=== PATIENT | female | born 1995 | race Caucasian/White ===

== ENCOUNTER 2016-04-10 14:08 | Emergency (ER) | payer BC ==
[2016-04-10 15:19] VITALS: BP 103/64
--- NOTE | 2016-04-10 16:08 | UC ---
Head Injury HPI - HPI Summary HPI Summary: 1 day history of cough, chills, nasal congestion, headache, myalgias, fatigue. Mild shortness of breath. Headache persists. Student at [employer]. Did have a flu shot - History Of Current Complaint Chief Complaint: UCRespiratory Stated Complaint: FLU LIKE SXS Time Seen by Provider: 04/10/16 16:00 Hx Obtained From: Patient Hx Last Menstrual Period: 03/22/16 ?: No Onset/Duration: Sudden Onset, Lasting Days - 1 Severity Currently: Moderate Severity Initially: Moderate Aggravating Factor(s): Nothing Alleviating Factor(s): Other - dayquil helped with fever. - Allergies/Home Medications Allergies/Adverse Reactions: Allergies Allergy/AdvReac Type Severity Reaction Status Date / Time Amoxicillin Allergy Hives Verified 04/10/16 15:15 Home Medications: Home Medications [id number] [Daytime/Nite Time Cold/Fl] 1 sheila PO BID PRN [History Confirmed 04/10/16] PMH/Surg Hx/FS Hx/Imm Hx Previously Healthy: Yes - Surgical History Surgical History: Yes Surgery Procedure, Year, and Place: L elbow - Family History Known Family History: Positive: Other - parents alive and well; does not know extended FH - Social History Occupation: Student Alcohol Use: Occasionally Substance Use Type: None Smoking Status (MU): Never Smoked Tobacco - Immunization History Most Recent Influenza Vaccination: 2016 Review of Systems Constitutional: Fever, Fatigue Skin: Negative Eyes: Negative ENT: Negative Respiratory: Other Cardiovascular: Negative Gastrointestinal: Negative Genitourinary: Negative Motor: Negative Neurovascular: Negative Musculoskeletal: Myalgia Neurological: Negative Psychological: Negative All Other Systems Reviewed And Are Negative: Yes Physical Exam Triage Information Reviewed: Yes Appearance: Ill-Appearing - looks mildly unwell Vital Signs: Initial Vital Signs Temp 99.5 F 04/10/16 15:15 Pulse 107 04/10/16 15:15 Resp 16 04/10/16 15:15 BP 103/64 04/10/16 15:15 Pulse Ox 99 04/10/16 15:15 Vital Signs Reviewed: Yes Eyes: Positive: Conjunctiva Inflamed ENT: Positive: Pharynx normal, TMs normal Dental Exam: Normal Neck: Positive: Supple, Nontender, Enlarged Nodes @ - mild increase in tonsillar nodes Respiratory: Positive: Lungs clear, Normal breath sounds Cardiovascular: Positive: RRR, No Murmur Abdomen Description: Positive: Nontender, No Organomegaly, Soft Musculoskeletal Exam: Normal Neurological Exam: Normal Psychological Exam: Normal Skin Exam: Normal Head Injury Course/Dx - Course Course Of Treatment: symptomatic treatment of flu - Differential Dx/Diagnosis Provider Diagnoses: influenza Discharge - Discharge Plan Condition: Stable Disposition: HOME Patient Education Materials: Influenza (ED) Additional Instructions: As discussed, please increase your intake. You need some nutrition, and I suggest soup broth, yogurt, easily digested foods, and a significant increase in fluids. Ensure that you stay hydrated, and rest as well as you can. The value of Tamiflu is very limited and not indicated for you.
== END 2016-04-10 16:42 | disposition home or self-care (01) ==
LOC: UCCORT 14:08
DX: J11.1 Influenza due to unidentified influenza virus with other respiratory manifestations (principal); Z88.0 Allergy status to penicillin
CPT/HCPCS: 99201; G0463

== ENCOUNTER 2017-06-18 17:14 | Emergency (ER) | payer BC ==
[2017-06-18 17:46] VITALS: BP 123/64
--- NOTE | 2017-06-18 18:08 | UC ---
Lower Extremity/Ankle HPI - HPI Summary HPI Summary: pt was in dance today doing a spin on her toes type of move when she got a sudden pain in her left foot. the foot is painful and swollen. staes I have a cold but am healthy otherwise - History of Current Complaint Chief Complaint: UCLowerExtremity Stated Complaint: LEFT FOOT INJURY Time Seen by Provider: 06/18/17 17:51 Hx Obtained From: Patient Hx Last Menstrual Period: 05/22/17 ?: No Onset/Duration: Sudden Onset Pain Intensity: 6 Aggravating Factor(s): Ambulation Alleviating Factor(s): Rest Able to Bear Weight: Yes - Risk Factors Gout Risk Factors: Negative - Allergies/Home Medications Allergies/Adverse Reactions: Allergies Allergy/AdvReac Type Severity Reaction Status Date / Time amoxicillin Allergy Hives Verified 06/18/17 17:47 PMH/Surg Hx/FS Hx/Imm Hx Previously Healthy: Yes - Surgical History Surgical History: Yes Surgery Procedure, Year, and Place: L elbow - Family History Known Family History: Positive: Other - parents alive and well; does not know extended FH Negative: Diabetes - Social History Occupation: Student Lives: Dormitory/Roommates Alcohol Use: Occasionally Substance Use Type: None Smoking Status (MU): Never Smoked Tobacco - Immunization History Most Recent Influenza Vaccination: 2016 Vaccination Up to Date: Yes Review of Systems Constitutional: Negative Skin: Negative Eyes: Negative ENT: Negative Respiratory: Negative Cardiovascular: Negative Gastrointestinal: Negative Genitourinary: Negative Motor: Negative Neurovascular: Negative Musculoskeletal: Other: - pain, swelling L foot Neurological: Negative Psychological: Negative Is Patient Immunocompromised?: No All Other Systems Reviewed And Are Negative: Yes Physical Exam Triage Information Reviewed: Yes Appearance: Well-Appearing Vital Signs: Initial Vital Signs Temp 100.3 F 06/18/17 17:42 Pulse 81 06/18/17 17:42 Resp 16 06/18/17 17:42 BP 123/64 06/18/17 17:42 Pulse Ox 100 06/18/17 17:42 Vital Signs Reviewed: Yes Eyes: Positive: Conjunctiva Clear ENT: Positive: Pharynx normal, Nasal congestion, Nasal drainage - CLEAR, TMs normal Neck: Positive: Supple, Nontender Respiratory: Positive: Lungs clear, Normal breath sounds Cardiovascular: Positive: RRR, No Murmur Abdomen Description: Positive: Nontender, No Organomegaly, Soft Bowel Sounds: Positive: Present Musculoskeletal: Positive: Other: - LLE: hip, knee, ankle and achilles are atraumatic. L lateral fott is swollen and tender. Gross s/v/m is intact. No red or warmtha and skin is intact. Neurological: Positive: Alert Psychological: Positive: Age Appropriate Behavior Skin Exam: Normal Diagnostics - Radiology No standard instances Xray Interpretation: Positive (See Comments) - wet read fx 5th metatarsal Lower Extremity Course/Dx - Course Course Of Treatment: + spiral fx L 5th metatarsal. will natalie, splint, refer to orthopedics. no concern for cellulitis or septic joint. temp is from her URI. - Differential Dx/Diagnosis Provider Diagnoses: L 5th metatarsal fracture Discharge - Sign-Out/Discharge Documenting (check all that apply): Discharge - Discharge Plan Condition: Stable Disposition: HOME Patient Education Materials: Foot Fracture in Adults (ED) Referrals: Eliseo Thorne MD [Medical Doctor] - As Soon As Possible Additional Instructions: USE THE SPLINT, NATALIE AND CRUTCHES UNTIL CLEARED - Billing Disposition and Condition Condition: STABLE Disposition: HOME
--- NOTE | 2017-06-18 19:16 | RAD ---
INDICATION: Right foot pain injury while dancing COMPARISON: None. TECHNIQUE: 3 views of the left foot were obtained. FINDINGS: Involving the distal metaphysis and diaphysis of the left fifth metatarsal there is a slightly displaced oblique fracture extending from the medial cortex of the diaphysis to the lateral cortex of the distal metaphysis. The remaining visualized bones are intact and appropriately aligned. IMPRESSION: MINIMALLY DISPLACED OBLIQUE FRACTURE INVOLVING THE DISTAL HALF OF THE LEFT FIFTH METATARSAL.
== END 2017-06-18 18:30 | disposition home or self-care (01) ==
LOC: UCCORT 17:14
DX: S92.352A Displaced fracture of fifth metatarsal bone, left foot, initial encounter for closed fracture (principal); X50.9XXA Other and unspecified overexertion or strenuous movements or postures, initial encounter; Y93.41 Activity, dancing; Y92.9 Unspecified place or not applicable; Z88.3 Allergy status to other anti-infective agents
CPT/HCPCS: 99213; G0463

== ENCOUNTER 2018-01-29 16:44 | Emergency (ER) | payer BC ==
[2018-01-29 17:18] VITALS: BP 160/84
--- NOTE | 2018-01-29 18:11 | UC ---
Abdominal Pain Female HPI - HPI Summary HPI Summary: 22 y/o female with PMH + for anxiety, presents with 5-7 day course of abdominal pain in LLQ, suprapubic, nausea, vomiting after eating, decreased appetite, feeling flushed x 1, fatigue. Increased stress at school, no chance of , denies fever, chills. no prior occurance, no h/o ovarian cysts, endometriosis, IBS. - History of Current Complaint Chief Complaint: UCAbdominalPain Stated Complaint: ABDOMINAL PAIN Time Seen by Provider: 01/29/18 17:19 Hx Obtained From: Patient Hx Last Menstrual Period: 01/15/18 ?: No - urine neg, denies sexually active Onset/Duration: Sudden Onset, Lasting Days Timing: Constant Severity Initially: Moderate Severity Currently: Mild Pain Intensity: 2 Allergies/Adverse Reactions: Allergies Allergy/AdvReac Type Severity Reaction Status Date / Time amoxicillin Allergy Hives Verified 01/29/18 17:15 Home Medications: Home Medications Acetaminophen TAB* [Tylenol TAB*] 650 mg PO Q4H PRN 01/29/18 [History Confirmed 01/29/18] PMH/Surg Hx/FS Hx/Imm Hx Previously Healthy: Yes - Surgical History Surgical History: Yes Surgery Procedure, Year, and Place: L elbow - Family History Known Family History: Positive: Other - parents alive and well; does not know extended FH Negative: Diabetes - Social History Alcohol Use: Weekly Substance Use Type: None Smoking Status (MU): Never Smoked Tobacco - Immunization History Most Recent Influenza Vaccination: 2016 Vaccination Up to Date: Yes Review of Systems All Other Systems Reviewed And Are Negative: Yes Gastrointestinal: Positive: Abdominal Pain, Vomiting - x 1, Nausea - constant Is Patient Immunocompromised?: No Physical Exam Triage Information Reviewed: Yes Appearance: Well-Appearing, No Pain Distress, Well-Nourished Vital Signs: Initial Vital Signs Temp 98.9 F 01/29/18 17:13 Pulse 119 01/29/18 17:13 Resp 16 01/29/18 17:13 BP 160/84 01/29/18 17:13 Pulse Ox 99 01/29/18 17:13 Abdomen Description: Positive: No Organomegaly, Soft, Other: - TT deep palpation over LLQ, suprapubic region.. Negative: Bruit, CVA Tenderness (R), CVA Tenderness (L), Distended, Guarding, McBurney's Point Tenderness, Splenomegaly Bowel Sounds: Positive: Present Pelvic Exam: Positive: Other - rectal- normal rectal tone, no fisutures, stool sample obtained. Neurological Exam: Normal Skin Exam: Normal Abd Pain Female Course/Dx - Course Course Of Treatment: UA- + hematuria, occult- negative. blood work obtained, continue to monitor symptoms. Follow up with health dept in 1 week for repeat UA - Differential Dx/Diagnosis Differential Diagnosis: Constipation, Diverticulitis, Irritable Bowel Syndrome, Pelvic Inflammatory Disease, Peptic Ulcer Disease Provider Diagnoses: nausea Discharge - Sign-Out/Discharge Documenting (check all that apply): Patient Departure All imaging exams completed and their final reports reviewed: No Studies - Discharge Plan Condition: Good Disposition: HOME Prescriptions: Omeprazole 20 mg PO DAILY #30 capsule. Patient Education Materials: Acute Abdominal Pain (ED) Referrals: No Primary Care Phys,NOPCP [Primary Care Provider] - Additional Instructions: - Increase fluid intake - bland diet with small frequent meals - PPI daily - Follow up with student health within 1 week for repeat urine test due to hematuria - REturn with increased pain, fever, chills. - Billing Disposition and Condition Condition: GOOD Disposition: Home
[2018-01-30 10:43] LABS: Hematocrit 40 % (35-47); Hemoglobin 13.9 g/dl (12.0-16.0); Mean Corpuscular HGB Conc 34 g/dl (31-36); Mean Corpuscular Hemoglobin 32 pg (27-31); Mean Corpuscular Volume 94 fL (80-97); Mean Platelet Volume 11.1 fL (7.4-10.4); Platelet Count 283 10^3/ul (150-450); Red Cell Distribution Width 12 % (10.5-15); White Blood Count 8.6 10^3/ul (3.5-10.8)
[2018-01-30 11:08] LABS: EGFR Non-African American 107.4 (>60)
--- NOTE | 2018-02-01 07:31 | UC ---
- Progress Note Progress Note: urine culture- no growth no change ljj 02/01/2018 Discharge - Sign-Out/Discharge Documenting (check all that apply): Post-Discharge Follow Up All imaging exams completed and their final reports reviewed: No Studies - Discharge Plan Condition: Good Disposition: HOME Prescriptions: Omeprazole 20 mg PO DAILY #30 capsule. Patient Education Materials: Acute Abdominal Pain (ED) Referrals: No Primary Care Phys,NOPCP [Primary Care Provider] - Additional Instructions: - Increase fluid intake - bland diet with small frequent meals - PPI daily - Follow up with student health within 1 week for repeat urine test due to hematuria - REturn with increased pain, fever, chills. - Billing Disposition and Condition Condition: GOOD Disposition: Home
== END 2018-01-29 18:38 | disposition home or self-care (01) ==
LOC: UCCORT 16:44
DX: R11.0 Nausea (principal); Z88.0 Allergy status to penicillin
CPT/HCPCS: 36415; 80053; 81003; 82272; 84702; 85027; 87086; 99212; G0463